=== PATIENT | female | born 1970 | race African-American/Black ===

== ENCOUNTER 2020-11-24 14:28 | Emergency (ER) | payer OTHER ==
[~2020-11-24] VITALS: Ht 177.8 cm; Wt 90.0 kg
[~2020-11-24 14:28] MED LIST: ALPR0.5T PO; ARIP10TA9 PO; LEVO500T59 PO; TRAZ-123 PO
[2020-11-24 16:26] VITALS: BP 132/65
[2020-11-24] MEDS ORDERED: CLIN150C15 PO (17:16)
[2020-11-24] MEDS ORDERED: CHLO15MO2 SWSP (17:16)
[2020-11-24] MEDS ORDERED: NAPR-514 PO (17:16)
--- NOTE | 2020-11-24 17:16 | ED.ADGEN ---
Past Medical History Past Medical History: Anxiety, Bipolar, Depression, Schizophrenia, Other Additional Past Medical Histor: schizo-affective type 1 Past Surgical History: Other Additional Past Surgical Histo: left eye sx Smoking Status: Current Every Day Smoker Alcohol Use: Heavy Drug Use: Cocaine, Marijuana General Adult EDM: Chief Complaint: DENTAL PROBLEM HPI: HPI: Patient is a 50 year old AA female who presents emergency department with complaints of left upper quadrant and right lower quadrant dental pain and infections for over a week. She also complains of chronic right foot pain after an injury 7 years ago. She denies any new injury to her foot. Patient denies any fever, nausea, vomiting, difficulty swallowing, shortness of breath, fever, cough, body aches, abdominal pain, ear pain, or headache. She currently rates her pain 10 out of 10 on pain scale, she denies any alleviating factors. Review of Systems: Review of Systems: Complete ROS is negative unless otherwise noted in HPI. Current Medications: Current Medications Medications (Trade) Dose Ordered Sig/Mini Start Time Stop Time Status Last Admin Dose Admin Naproxen (Naprosyn) 500 mg 1X ONCE 11/24/20 17:45 11/24/20 17:41 DC 11/24/20 17:26 500 MG Allergies: Allergies: Allergies Coded Allergies Type Severity Reaction Last Updated Verified iodine Allergy Intermediate 12/10/14 Yes Physical Exam: PE: See Above Constitutional: Well developed, well nourished, no acute distress, non-toxic appearance. [] HENT: Normocephalic, atraumatic, bilateral external ears normal, nose normal; diffuse dental caries, draining dental abscesses in the upper left quadrant, and right lower quadrants [] Eyes: PERRLA, EOMI, conjunctiva normal, no discharge. [] Neck: Normal range of motion, supple, nontender, no stridor. [] Cardiovascular:Heart rate regular rhythm Lungs & Thorax: Respirations even and unlabored, no retractions, no respiratory distress Skin: Warm, dry, no erythema, no rash. [] Extremities: Right foot: No obvious deformity, no bruising, no erythema, no cyanosis, ROM intact, no edema. [] Neurologic: Alert and oriented X 3, normal motor, normal sensory, no focal deficits noted. [] Psychologic: Affect normal, judgement normal, mood normal. [] EKG: EKG: [] Heart Score: C/O Chest Pain: No Risk Scores: Score 0 - 3: 2.5% MACE over next 6 weeks - Discharge Home Score 4 - 6: 20.3% MACE over next 6 weeks - Admit for Clinical Observation Score 7 - 10: 72.7% MACE over next 6 weeks - Early Invasive Strategies Radiology/Procedures: Radiology/Procedures: [] Course & Med Decision Making: Course & Med Decision Making Pertinent Labs and Imaging studies reviewed. (See chart for details) [] Dragon Disclaimer: Dragon Disclaimer: This electronic medical record was generated, in whole or in part, using a voice recognition dictation system. Departure Departure Impression: Primary Impression: Infected dental caries Additional Impressions: Dentalgia Pain, foot, right, chronic Disposition: HOME / SELF CARE / HOMELESS Condition: STABLE Referrals: AMBER GAGNON (PCP) Patient Instructions: Chronic Pain, Dental Abscess, Dental Pain, [id number] Additional Instructions: Fill prescription(s) and use as directed. Follow up with dentist using the refe rral list provided. Follow-up with your primary care doctor for further evaluation of your chronic foot pain. Return to the ER if symptoms worsen or if fever develops. Scripts Chlorhexidine Gluconate (PERIDEX) 15 Ml Mouthwash 15 ML SWSP BID for 10 Days, #1 BOT 0 Refills [place] your teeth before use of this medication and rinse thoroughly after using the medication as it may stain your teeth. Prov: JAYDA TRINIDAD APRN 11/24/20 Naproxen (NAPROXEN) 500 Mg Tablet 1 TAB PO BID PRN for PAIN for 10 Days, #20 TAB 0 Refills Prov: JAYDA TRINIDAD APRN 11/24/20 Clindamycin Hcl (CLINDAMYCIN HCL) 150 Mg Capsule 450 MG PO TID for 7 Days, #63 CAP 0 Refills Prov: JAYDA TRINIDAD APRN 11/24/20 Problem Qualifiers JAYDA TRINIDAD APRN November 24, 2020 17:16
[2020-11-24] MEDS: NAPROXEN 500 MG TABLET PO ONE (17:26)
== END 2020-11-24 17:28 | disposition home or self-care (01) ==
LOC: ER 14:28
DX: K04.7 Periapical abscess without sinus (principal); G89.29 Other chronic pain; M79.671 Pain in right foot; F31.9 Bipolar disorder, unspecified; F20.9 Schizophrenia, unspecified; F17.200 Nicotine dependence, unspecified, uncomplicated; Z88.8 Allergy status to other drugs, medicaments and biological substances; F10.20 Alcohol dependence, uncomplicated; Y90.9 Presence of alcohol in blood, level not specified
CPT/HCPCS: 99283

== ENCOUNTER 2021-03-20 14:04 | Emergency (ER) | payer OTHER ==
[~2021-03-20] VITALS: Ht 167.6 cm; Wt 63.6 kg
[~2021-03-20 14:04] MED LIST changes: +CHLO15MO2 SWSP; +CLIN150C16 PO; +NAPR-514 PO
--- NOTE | 2021-03-20 15:17 | ED.ADGEN ---
Past Medical History Past Medical History: Anxiety, Bipolar, Depression, Schizophrenia, Other Additional Past Medical Histor: schizo-affective type 1 Past Surgical History: Other Additional Past Surgical Histo: left eye sx Smoking Status: Current Every Day Smoker Alcohol Use: Heavy Drug Use: Cocaine, Marijuana General Adult EDM: Chief Complaint: BACK PAIN - NO INJURY HPI: HPI: Patient is a 51-year-old female who arrives ambulatory to the emergency department complaining of right-sided lumbar back pain with radiation into her right thigh and lower extremity. Patient reports she has been dealing with this intermittently since September of this year. Patient reports she has experienced increasing pain over the past several days as she was out mowing her lawn earlier in the week. Patient states the pain is sharp and intermittent in nature. Patient states despite her pain she is not experienced any history of blunt trauma. She further denies any abdominal pain, saddle anesthesia or change to her bowel/bladder habits. Moreover she does have a history of fever or illness otherwise. She is awake, alert and uncomfortable appearing. Review of Systems: Review of Systems: Constitutional: Denies fever or chills. [] Eyes: Denies change in visual acuity. [] HENT: Denies nasal congestion or sore throat. [] Respiratory: Denies cough or shortness of breath. [] Cardiovascular: Denies chest pain or edema. [] GI: Denies abdominal pain, nausea, vomiting, bloody stools or diarrhea. [] : Denies dysuria. [] Musculoskeletal: Reports to lumbar back pain with associated extremity pain at the right side. [] Integument: Denies rash. [] Neurologic: Denies headache, focal weakness or sensory changes. [] Endocrine: Denies polyuria or polydipsia. [] Lymphatic: Denies swollen glands. [] Psychiatric: Denies depression or anxiety. [] Family History: Family History: Noncontributory Allergies: Allergies: Allergies Coded Allergies Type Severity Reaction Last Updated Verified iodine Allergy Intermediate 12/10/14 Yes Physical Exam: PE: Constitutional: Uncomfortable appearing. Well developed, well nourished, non- toxic appearance. [] HENT: Normocephalic, atraumatic, bilateral external ears normal, oropharynx moist, no oral exudates, nose normal. [] Eyes: PERRLA, EOMI, conjunctiva normal, no discharge. [] Neck: Normal range of motion, no tenderness, supple, no stridor. [] Cardiovascular:Heart rate regular rhythm, no murmur [] Lungs & Thorax: Bilateral breath sounds clear to auscultation [] Abdomen: Bowel sounds normal, soft, no tenderness, no masses, no pulsatile masses. [] Skin: Warm, dry, no erythema, no rash. [] Back: Patient has paraspinal tenderness in the lumbosacral region on the right with associated spasm. There is no midline tenderness nor is there CVA tenderness. [] Extremities: No tenderness, no cyanosis, no clubbing, ROM intact, no edema. [] Neurologic: Alert and oriented X 3, normal motor function, normal sensory function, no focal deficits noted. [] Psychologic: Affect normal, judgement normal, mood normal. [] Current Patient Data: Vital Signs: Vital Signs Date Time Temp Pulse Resp B/P (MAP) Pulse Ox O2 Delivery O2 Flow Rate FiO2 03/20/21 15:18 97.8 80 24 164/77 (106) 99 Room Air 97.8 EKG: EKG: [] Heart Score: C/O Chest Pain: No Risk Factors: Risk Factors: DM, Current or recent (<one month) smoker, HTN, HLP, family history of CAD, obesity. Risk Scores: Score 0 - 3: 2.5% MACE over next 6 weeks - Discharge Home Score 4 - 6: 20.3% MACE over next 6 weeks - Admit for Clinical Observation Score 7 - 10: 72.7% MACE over next 6 weeks - Early Invasive Strategies Radiology/Procedures: Radiology/Procedures: [] Course & Med Decision Making: Course & Med Decision Making Pertinent Labs and Imaging studies reviewed. (See chart for details) [] Dragon Disclaimer: [place] Disclaimer: This electronic medical record was generated, in whole or in part, using a voice recognition dictation system. Departure Departure Impression: Primary Impression: Lumbar back pain with radiculopathy affecting right lower extremity Disposition: HOME / SELF CARE / HOMELESS Condition: STABLE Referrals: AMBER GAGNON (PCP) Patient Instructions: Sciatica Scripts Tramadol Hcl (ULTRAM) 50 Mg Tablet 50 MG PO Q6HRS PRN for PAIN for 3 Days, #12 TAB 0 Refills Prov: JOSE CAMP DO 03/20/21 Cyclobenzaprine Hcl (CYCLOBENZAPRINE HCL) 10 Mg Tablet 1 TAB PO TID for 5 Days, #15 TAB Prov: JOSE CAMP DO 03/20/21 Methylprednisolone (MEDROL) 4 Mg Tab.ds.pk 1 PKG PO UD for inflammation, #1 PKG Prov: JOSE CAMP DO 03/20/21 JOSE CAMP DO Mar 20, 2021 15:17
[2021-03-20 15:18] VITALS: BP 164/77
[2021-03-20] MEDS ORDERED: METH4TAB2 PO (15:23)
[2021-03-20] MEDS ORDERED: CYCL10TA2 PO (15:23)
[2021-03-20] MEDS ORDERED: TRAM-48 PO (15:23)
== END 2021-03-20 15:33 | disposition home or self-care (01) ==
LOC: ER 14:04
DX: M54.16 Radiculopathy, lumbar region (principal); M79.604 Pain in right leg; M79.651 Pain in right thigh; F25.0 Schizoaffective disorder, bipolar type; F17.200 Nicotine dependence, unspecified, uncomplicated; F10.20 Alcohol dependence, uncomplicated; Y90.9 Presence of alcohol in blood, level not specified; Z88.8 Allergy status to other drugs, medicaments and biological substances
CPT/HCPCS: 99283